=== PATIENT | male | born 1950 | race Caucasian/White ===

== ENCOUNTER 2016-08-27 09:32 | Emergency (ER) | payer MEDICARE ==
--- NOTE | 2016-08-27 10:09 | EDM.PDOC ---
ED HISTORY OF PRESENT ILLNESS - General Chief Complaint: Cardiovascular Problem Stated Complaint: LETHARGY/SOB Time Seen by Provider: 08/27/16 09:52 Source of Information: Reports: Patient, Provider (Dr. Mir), RN notes reviewed History Limitations: Reports: No limitations - History of Present Illness INITIAL COMMENTS - FREE TEXT/NARRATIVE: I was notified by Dr. Mir that the patient was over in laboratory getting an ABG, but that he was instructing the patient to come to the ED after his ABG. The patient is morbidly obese, unable to walk, residing at [facility] with a chronic indwelling Craig. We are told that he is supposed to wear your CPAP or BiPAP at the shelter, but that he refuses. The patient states that he has had shortness of breath at rest for about 6 months, and that his oxygen saturation has been recorded low for about that length of time, as well. He states that he has some mid back pain when he takes a deep breath, otherwise, he has not had any recent fever, chills, cough, anterior chest pain, palpitations, nausea, vomiting, constipation, or diarrhea. He states that he last saw Dr. Mir about 2 months ago for a general checkup. His dyspnea issue was not discussed. - Related Data Allergies/ADRs: Allergies Allergy/AdvReac Type Severity Reaction Status Date / Time No Known Allergies Allergy Verified 02/10/16 11:19 Home Meds: Home Meds Celecoxib [CeleBREX] 200 mg PO DAILY 01/14/14 [History] Insulin Aspart [Novolog Flexpen] 20 unit SQ 01/14/14 [History] Metoprolol Tartrate [Lopressor] 25 mg PO BID #60 tablet 01/18/14 [Rx] Calcium Polycarbophil [Fiber Laxative] 625 mg PO ,03/13/15 [History] Garlic 1,000 mg PO DAILY 03/13/15 [History] Insulin Detemir [Levemir Flexpen] 40 unit SQ BEDTIME 03/13/15 [History] Insulin Detemir [Levemir] 45 unit SQ ACBREAKFAST 03/13/15 [History] Losartan [Cozaar] 25 mg PO DAILY 03/13/15 [History] Potassium Gluconate 2 tab PO DAILY 03/13/15 [History] Tapentadol [Nucynta] 50 tab PO 0600,1800 03/13/15 [History] Warfarin [Coumadin] 10 mg PO ASDIRECTED 03/13/15 [History] atorvaSTATin [Lipitor] 40 mg PO BEDTIME 03/13/15 [History] Acetaminophen [Tylenol] 325 mg PO QID PRN 02/10/16 [History] Furosemide 120 mg PO 08,14 02/10/16 [History] Warfarin Sodium [Jantoven] 15 mg PO WE 02/10/16 [History] metroNIDAZOLE/Skin Cleansr #23 [Rosadan 0.75% Cream] 1 appful TOP ASDIRECTED PRN 02/10/16 [History] Cephalexin [Keflex] 500 mg PO 06,12,18 08/27/16 [History] Diltiazem [Cardizem CD] 180 mg PO ACBRK 08/27/16 [History] Insulin Aspart [NovoLOG] 34 unit SUBCUT 1130 08/27/16 [History] Ipratropium/Albuterol Sulfate [Iprat-Albut 0.5-3(2.5) mg/3 ml] 3 ml IH Q6H PRN 08/27/16 [History] Metolazone 10 mg PO ASDIRECTED 08/27/16 [History] Metolazone 10 mg PO TH 08/27/16 [History] Mupirocin Oint [Bactroban Oint] 1 dose TOP BID 08/27/16 [History] Polyethylene Glycol 3350 [MiraLAX] 17 gm PO DAILY 08/27/16 [History] Sertraline [Zoloft] 50 mg PO DAILY 08/27/16 [History] Past Medical History Cardiovascular History: Reports: Afib, CAD, Heart Failure, High cholesterol, Hypertension, DC Respiratory History: Reports: Sleep apnea (noncompliant with CPAP) Gastrointestinal History: Reports: GERD Musculoskeletal History: Reports: Arthritis, Back pain, chronic Psychiatric History: Reports: Depression Endocrine/Metabolic History: Reports: Diabetes, type II, Obesity/BMI 30+ - Infectious Disease History Infectious Disease History: Reports: MRSA Other Infectious Disease History: dcoumented on shelter paper work due from sores-wounds. isolations started - Past Surgical History Cardiovascular Surgical History: Reports: Coronary artery stent (x 2) Social & Family History - Tobacco Use Smoking Status *Q: Former Smoker Years of Tobacco use: 30 Packs/Tins Daily: 1.5 Used Tobacco, but Quit: Yes Month Tobacco Last Used: 1995 - Caffeine Use Caffeine Use: Reports: None - Alcohol Use Alcohol Use History: Yes Days Per Week of Alcohol Use: 1 Number of Drinks Per Day: 0 Total Drinks Per Week: 0 Date/Time of Last Drink Comment: 2013 Alcohol Use Frequency: Not Used in over 1 year - Recreational Drug Use Recreational Drug Use: Yes Drug Use in Last 12 Months: No Recreational Drug Use Frequency: Not Used In Over 1 Year Recreational Drug Last Use: "When I was younger" - Living Situation & Occupation Living situation: Reports: , extended care facility ([facility]) Occupation: disabled ED ROS GENERAL - Review of Systems Review Of Systems: See Below Constitutional: Reports: no symptoms HEENT: Reports: No symptoms Respiratory: Reports: Shortness of Breath. Denies: Wheezing, Cough Cardiovascular: Reports: No symptoms. Denies: Chest pain Endocrine: Reports: no symptoms GI/Abdominal: Reports: No symptoms : Reports: no symptoms Musculoskeletal: Reports: no symptoms Skin: Reports: no symptoms Neurological: Reports: No Symptoms Psychiatric: Reports: No symptoms Hematologic/Lymphatic: Reports: no symptoms Immunologic: Reports: no symptoms ED EXAM, GENERAL - Physical Exam Exam: See Below Exam Limited By: No limitations General Appearance: alert, WD/WN, no apparent distress, lethargic Eye Exam: bilateral eye: EOMI, normal inspection Ears: normal external exam, hearing grossly normal Ear Exam: bilateral ear: auricle normal Nose: normal inspection, no blood Throat/Mouth: Normal inspection, Normal lips, Normal voice, No airway compromise Head: atraumatic, normocephalic Neck: normal inspection, full range of motion Respiratory/Chest: no respiratory distress, lungs clear, normal breath sounds, no accessory muscle use Cardiovascular: normal peripheral pulses, no gallop, no JVD, no murmur, no rub, irregularly irregular. No: tachycardia Peripheral Pulses: 3+: radial (L), radial (R) GI/Abdominal: normal bowel sounds, soft, non tender, no abnormal bruit, other ( Obese) (Male) Exam: Deferred Rectal (Males) Exam: Deferred Extremities: normal capillary refill, other (Brawny edema) Neurological: alert, oriented, normal cognition, no motor/sensory deficits, slow to respond (lethargic/sleepy - repeatedly nods off) Psychiatric: normal affect Skin Exam: Warm, Dry, Intact, Normal color, No rash Lymphatic: no adenopathy EKG INTERPRETATION EKG Date: 08/27/16 Time: 10:31 Rhythm: a-fib Rate (beats/min): 74 Moroni: LAD-left axis deviation P-wave: absent QRS: normal ST-T: normal QT: normal Comparison: no change (02/10/2016) Course - Vital Signs Last Recorded V/S: Last Vital Signs Temp 36.3 C 08/27/16 09:44 Pulse 83 08/27/16 09:44 Resp 20 08/27/16 09:44 BP 195/144 H 08/27/16 09:44 Pulse Ox 86 L 08/27/16 09:44 - Orders/Labs/Meds Orders: Active Orders 24 hr Category Date Time Status BIPAP Adult [RT BiPAP/CPAP] [RC] ASDIRECTED Care 08/27/16 10:05 Active EKG Documentation Completion [RC] STAT Care 08/27/16 10:12 Active Labs: Laboratory Tests 08/27/16 08/27/16 08/27/16 Range/Units 10:35 10:35 10:35 WBC 5.01 (4.23-9.07) K/mm3 RBC 5.01 (4.63-6.08) M/mm3 Hgb 12.9 L (13.7-17.5) gm/L Hct 43.3 (40.1-51.0) % MCV 86.4 (79.0-92.2) fl MCH 25.7 (25.7-32.2) pg MCHC 29.8 L (32.2-35.5) g/dl RDW Std Deviation 73.6 H (35.1-43.9) fL Plt Count 295 (163-337) K/mm3 MPV 9.8 (9.4-12.3) fl Neutrophils % (Manual) 66 H (40-60) % Band Neutrophils % 1 (0-10) % Lymphocytes % (Manual) 23 (20-40) % Atypical Lymphs % 0 % Monocytes % (Manual) 7 (2-10) % Eosinophils % (Manual) 2 (0.8-7.0) % Basophils % (Manual) 1 (0.2-1.2) Platelet Estimate Adequate Hypochromasia 1+ slight Anisocytosis 1+ slight RBC Morph Comment Not Reportable Puncture Site ABG pH (7.35-7.45) ABG pCO2 (35.0-45.0) mmHg ABG pO2 (80.0-100.0) mmHg ABG HCO3 (22.0-26.0) meq/L ABG O2 Saturation (96.0-97.0) % ABG Base Excess (-2-2.0) Madi Test A-a Gradient mmHg O2 Delivery Device Oxygen Flow Rate FiO2 (21.00-100.00) % Sodium 136 (136-145) mEq/L Potassium 3.7 (3.5-5.1) mEq/L Chloride 94 L (98-107) mEq/L Carbon Dioxide 45 H* (21-32) mEq/L Anion Gap 0.7 L (5-15) BUN 21 H (7-18) mg/dL Creatinine 0.9 (0.7-1.3) mg/dL Est Cr Clr Drug Dosing 100.46 mL/min Estimated GFR (MDRD) > 60 (>60) mL/min BUN/Creatinine Ratio 23.3 H (14-18) Glucose 136 H (80-115) mg/dL POC Glucose (80-115) mg/dL Lactic Acid 2.3 H (0.4-2.0) mmol/L Calcium 8.8 (8.5-10.1) mg/dL Magnesium 2.3 (1.8-2.4) mg/dl Total Bilirubin 1.2 H (0.2-1.0) mg/dL AST 20 (15-37) U/L ALT 25 (16-63) U/L Alkaline Phosphatase 141 H (46-116) U/L Troponin I < 0.017 (0.00-0.056) ng/mL B-Natriuretic Peptide (0-100) pg/mL Total Protein 8.0 (6.4-8.2) g/dl Albumin 2.5 L (3.4-5.0) g/dl Globulin 5.5 gm/dL Albumin/Globulin Ratio 0.5 L (1-2) TSH 3rd Generation 5.084 H (0.358-3.74) uIU/mL 08/27/16 08/27/16 08/27/16 Range/Units 10:35 11:05 13:02 WBC (4.23-9.07) K/mm3 RBC (4.63-6.08) M/mm3 Hgb (13.7-17.5) gm/L Hct (40.1-51.0) % MCV (79.0-92.2) fl MCH (25.7-32.2) pg MCHC (32.2-35.5) g/dl RDW Std Deviation (35.1-43.9) fL Plt Count (163-337) K/mm3 MPV (9.4-12.3) fl Neutrophils % (Manual) (40-60) % Band Neutrophils % (0-10) % Lymphocytes % (Manual) (20-40) % Atypical Lymphs % % Monocytes % (Manual) (2-10) % Eosinophils % (Manual) (0.8-7.0) % Basophils % (Manual) (0.2-1.2) Platelet Estimate Hypochromasia Anisocytosis RBC Morph Comment Puncture Site Lt radial ABG pH 7.44 (7.35-7.45) ABG pCO2 68.5 H (35.0-45.0) mmHg ABG pO2 95.0 (80.0-100.0) mmHg ABG HCO3 45.4 H (22.0-26.0) meq/L ABG O2 Saturation 96.0 (96.0-97.0) % ABG Base Excess 17.6 H (-2-2.0) Madi Test Positive A-a Gradient 116 mmHg O2 Delivery Device Bipap 10/4 Oxygen Flow Rate 6.0 FiO2 44.00 (21.00-100.00) % Sodium (136-145) mEq/L Potassium (3.5-5.1) mEq/L Chloride (98-107) mEq/L Carbon Dioxide (21-32) mEq/L Anion Gap (5-15) BUN (7-18) mg/dL Creatinine (0.7-1.3) mg/dL Est Cr Clr Drug Dosing mL/min Estimated GFR (MDRD) (>60) mL/min BUN/Creatinine Ratio (14-18) Glucose (80-115) mg/dL POC Glucose 91 (80-115) mg/dL Lactic Acid (0.4-2.0) mmol/L Calcium (8.5-10.1) mg/dL Magnesium (1.8-2.4) mg/dl Total Bilirubin (0.2-1.0) mg/dL AST (15-37) U/L ALT (16-63) U/L Alkaline Phosphatase (46-116) U/L Troponin I (0.00-0.056) ng/mL B-Natriuretic Peptide 237 H (0-100) pg/mL Total Protein (6.4-8.2) g/dl Albumin (3.4-5.0) g/dl Globulin gm/dL Albumin/Globulin Ratio (1-2) TSH 3rd Generation (0.358-3.74) uIU/mL - Radiology Interpretation Free Text/Narrative:: Portable chest radiograph reviewed. There appears to be cardiomegaly. There may be mild pulmonary vascular congestion. No pleural effusions seen on this AP view. No focal infiltrate, however, there does appear to be platelike atelectasis of the right lower lobe. No pneumothorax. Formal read per the Radiologist pending. - Re-Assessments/Exams Free Text/Narrative Re-Assessment/Exam: 08/27/16 10:08 The ABG obtained from the laboratory a short while ago indicates chronic respiratory acidosis and hypoxemia. Both may be due to hypoventilation, therefore I will treat this as a hypoxemic respiratory failure, as opposed to a hypercarbic respiratory failure. The patient told the nurse, and emphatically stated to me that he does not want to be intubated, even if it means his . He is agreeable to trying BiPAP. I will start him off at a relatively low setting, and titrate as tolerated. 08/27/16 12:02 The patient's repeat ABG, obtained 30 minutes after he was placed on BiPAP, shows some improvement in his PCO2, and substantial improvement in his oxygenation. The remainder of his workup is unremarkable. Case discussed with Dr. Mir at 12:00 N. He would like me to return the patient to the shelter, and he will impress upon the patient the importance of wearing his BiPAP. 08/27/16 12:17 Dr. Mir called back. He has spoken to [facility], who informed him that because the patient did not wear his BiPAP, they may have returned it to the [facility]. They are going to look for it, then call us. If the BiPAP machine is not there, then the patient will have to remain at this hospital until the shelter can get a unit. 08/27/16 12:21 [facility] called - they did return the BiPAP machine. We will endeavor to make arrangements for a replacement. 08/27/16 13:40 [facility] has discovered the original orders for the patient's BiPAP - 02/17. We have contacted [employer]. The [employer]pat[employer] driver will pick a BiPAP machine up from [facility], then come to get the patient here, and take him and the BiPAP machine back to [facility]. Departure - Departure Time of Disposition: 13:43 Disposition: Home, Self-Care 01 Condition: fair Clinical Impression: Hypercapnia, Hypoxemia, Elevated TSH, Pickwickian syndrome Referrals: Murtaza Mir MD [Primary Care Provider] - Forms: ED Department Discharge Additional Instructions: You were seen in the emergency room after a blood gas showed your carbon dioxide level was high, and your oxygen level low. Workup in the ER included blood work, an ECG, and a chest x-ray. You were placed on BiPAP, and a repeat blood gas was checked 30 minutes later. 30 minutes after beginning BiPAP, your repeat blood gas showed improvement in your carbon dioxide, and significant improvement in your oxygenation. It does not appear that you have pneumonia or a COPD exacerbation. You are not in decompensated heart failure. Your TSH (thyroid stimulating hormone) level was found to be high, which indicates you may have hypothyroidism (low thyroid activity). This needs to be repeated. Your ECG showed that you are in atrial fibrillation. This appears to be a chronic condition for you. Your case was discussed with Dr. Mir. You do not need to be hospitalized, however, it is very important that you wear your BiPAP at the shelter, as prescribed. If any other problems, please do not hesitate to return to the ER. - My Orders Last 24 Hours: My Active Orders 08/27/16 10:05 BIPAP Adult [RT BiPAP/CPAP] [RC] ASDIRECTED 08/27/16 10:12 EKG Documentation Completion [RC] STAT - Assessment/Plan Last 24 Hours: My Active Orders 08/27/16 10:05 BIPAP Adult [RT BiPAP/CPAP] [RC] ASDIRECTED 08/27/16 10:12 EKG Documentation Completion [RC] STAT
--- NOTE | 2016-08-27 12:40 | CR ---
Chest: Frontal view of the chest was obtained. Comparison: Previous chest x-ray of 02/10/16. Pulmonary vessels are slightly congested. Atelectasis is noted within the right lung base. Heart is enlarged. Elevated right hemidiaphragm is seen which appears stable. Impression: 1. Findings suspicious for mild CHF. 2. Discoid atelectasis within the right lung base is seen. Diagnostic code #3
[2016-08-27 15:23] VITALS: BP 157/140
== END 2016-08-27 15:12 | disposition home or self-care (01) ==
LOC: JD.ED 09:32
DX: R09.02 Hypoxemia (principal); R06.89 Other abnormalities of breathing; R94.6 Abnormal results of thyroid function studies; E66.2 Morbid (severe) obesity with alveolar hypoventilation; I25.10 Atherosclerotic heart disease of native coronary artery without angina pectoris; I11.0 Hypertensive heart disease with heart failure; I50.9 Heart failure, unspecified; E78.00 Pure hypercholesterolemia, unspecified; K21.9 Gastro-esophageal reflux disease without esophagitis; M19.90 Unspecified osteoarthritis, unspecified site; F32.9 Major depressive disorder, single episode, unspecified; E11.9 Type 2 diabetes mellitus without complications; Z79.4 Long term (current) use of insulin; Z68.30 Body mass index [BMI] 30.0-30.9, adult; Z87.891 Personal history of nicotine dependence; Z79.01 Long term (current) use of anticoagulants; Z79.899 Other long term (current) drug therapy; I48.91 Unspecified atrial fibrillation
CPT/HCPCS: 36415; 36600; 71010; 71010-26; 80053; 82803; 82962; 83605; 83735; 83880; 84443; 84484; 85025; 93005; 94660; 99285; 99285-25

== ENCOUNTER 2017-05-13 11:17 | Emergency (ER) | payer MEDICARE ==
[2017-05-13 11:46] VITALS: BP 176/147
[2017-05-13] MEDS ORDERED: Sodium Chloride 0.9% 10 ML Syringe FLUSH PRN (11:50)
--- NOTE | 2017-05-13 12:26 | CR ---
Chest: Portable view of the chest is obtained. Comparison: Prior chest x-ray of 08/27/16. Heart is enlarged. Chronic increased pulmonary vessels are seen. Elevated right hemidiaphragm is seen. Bony structures are grossly intact. Impression: 1. Findings as noted above. No significant change is seen from previous study. Diagnostic code #3
--- NOTE | 2017-05-13 13:20 | EDM.PDOC ---
ED HPI GENERAL MEDICAL PROBLEM - General Chief Complaint: General Stated Complaint: LETHARGIC Time Seen by Provider: 05/13/17 11:32 Source of Information: Reports: Patient, Fdc Records, Old Records History Limitations: Reports: No Limitations - History of Present Illness INITIAL COMMENTS - FREE TEXT/NARRATIVE: 66 year old male presents from [facility] for weakness and lethargy. Patient is a resident of [facility]. Per fdc report he has been more lethargic and weak than normal. Patient reports he is dropping thing more than normal. no vomiting, diarrhea or cough. Reports he has been constipated. Last bowel movement, a large, was 2 days ago. [facility] also appreciated erythema to his lower abdomen and worsening swelling to his scrotum. Patient has a chronic indwelling suprapubic cathater. Patient denies pain to his scrotum and states it is numb. Reportedly the patient was on ciprofloxain for open MRSA + wounds to the bilateral legs, finished the antibiotic yesterday. Review of the patient's record shows he is supposed to be on bipap 02/17 at the fdc. He states he has been using this as prescribed. bilateral legs Pain Score (Numeric/FACES): 5 - Related Data Allergies Allergy/AdvReac Type Severity Reaction Status Date / Time No Known Allergies Allergy Verified 05/13/17 11:46 Home Meds: Home Meds Celecoxib [CeleBREX] 200 mg PO DAILY 01/14/14 [History] Insulin Aspart [Novolog Flexpen] 46 unit SQ 01/14/14 [History] Metoprolol Tartrate [Lopressor] 25 mg PO BID #60 tablet 01/18/14 [Rx] Calcium Polycarbophil [Fiber Laxative] 625 mg PO ,03/13/15 [History] Insulin Detemir [Levemir Flexpen] 40 unit SQ BEDTIME 03/13/15 [History] Insulin Detemir [Levemir] 45 unit SQ ACBREAKFAST 03/13/15 [History] Losartan [Cozaar] 25 mg PO DAILY 03/13/15 [History] Potassium Gluconate 2 tab PO DAILY 03/13/15 [History] Tapentadol [Nucynta] 50 tab PO 0600,1800 03/13/15 [History] Warfarin [Coumadin] 10 mg PO SUMOTUTHFRSA 03/13/15 [History] atorvaSTATin [Lipitor] 40 mg PO BEDTIME 03/13/15 [History] Acetaminophen [Tylenol] 325 mg PO QID PRN 02/10/16 [History] Furosemide 120 mg PO ,14 02/10/16 [History] Warfarin Sodium [Jantoven] 15 mg PO WE 02/10/16 [History] metroNIDAZOLE/Skin Cleansr #23 [[place] 0.75% Cream] 1 appful TOP ASDIRECTED PRN 02/10/16 [History] Diltiazem [Cardizem CD] 180 mg PO ACBRK 08/27/16 [History] Insulin Aspart [NovoLOG] 48 unit SUBCUT 1730 08/27/16 [History] Ipratropium/Albuterol Sulfate [Iprat-Albut 0.5-3(2.5) mg/3 ml] 3 ml IH Q6H PRN 08/27/16 [History] Metolazone 10 mg PO SUMOTUWEFRSA 08/27/16 [History] Metolazone 10 mg PO TH 08/27/16 [History] Mupirocin Oint [Bactroban Oint] 1 dose TOP BID 08/27/16 [History] Polyethylene Glycol 3350 [MiraLAX] 17 gm PO DAILY 08/27/16 [History] Sertraline [Zoloft] 50 mg PO DAILY 08/27/16 [History] Doxycycline [Vibramycin] 100 mg PO BID #20 cap 05/13/17 [Rx] Gabapentin [Neurontin] 300 mg PO BID 05/13/17 [History] Past Medical History HEENT History: Reports: Other (See Below) Other HEENT History: dental caries Cardiovascular History: Reports: Afib, CAD, Heart Failure, High Cholesterol, Hypertension, NC Other Cardiovascular History: edema, PPH Respiratory History: Reports: Sleep Apnea Other Respiratory History: oxygen dependent;URI Gastrointestinal History: Reports: GERD Genitourinary History: Reports: Retention, Urinary, Other (See Below) Other Genitourinary History: elephantitis of the scrotum ;recent suprapubic cath insertion. Musculoskeletal History: Reports: Arthritis, Back Pain, Chronic Other Musculoskeletal History: chronic hip pain, carpal tunnel syndrome Neurological History: Reports: Other (See Below) Other Neuro History: hereditary and idiopathic neuropathies Psychiatric History: Reports: Depression Endocrine/Metabolic History: Reports: Diabetes, Type II, Obesity/BMI 30+ Hematologic History: Reports: Anticoagulation Therapy Dermatologic History: Reports: Cellulitis, Chronic Cellulitis, Venous Stasis Dermatitis, Other (See Below) Other Dermatologic History: MRSA leg wounds, chronic stasis ulcers, chronic dermatitis of scrotum/genitals - Infectious Disease History Infectious Disease History: Reports: MRSA Other Infectious Disease History: dcoumented on fdc paper work due from sores-wounds. isolations started - Past Surgical History Cardiovascular Surgical History: Reports: Coronary Artery Stent Male Surgical History: Reports: Suprapubic Catheter Placement Musculoskeletal Surgical History: Reports: Carpal Tunnel Social & Family History - Family History Family Medical History: Noncontributory - Tobacco Use Smoking Status *Q: Former Smoker Years of Tobacco use: 30 Packs/Tins Daily: 1.5 Used Tobacco, but Quit: Yes Month Tobacco Last Used: 1995 Second Hand Smoke Exposure: Yes - Caffeine Use Caffeine Use: Reports: None - Alcohol Use Days Per Week of Alcohol Use: 1 Number of Drinks Per Day: 0 Total Drinks Per Week: 0 - Recreational Drug Use Recreational Drug Use: Yes Drug Use in Last 12 Months: No Recreational Drug Use Frequency: Not Used In Over 1 Year Recreational Drug Last Use: "When I was younger" - Living Situation & Occupation Living situation: Reports: , Extended Care Facility Occupation: Disabled ED ROS GENERAL - Review of Systems Review Of Systems: See Below Constitutional: Reports: Malaise, Weakness, Fatigue Cardiovascular: Denies: Chest Pain GI/Abdominal: Reports: Constipation. Denies: Diarrhea, Vomiting ED EXAM, GENERAL - Physical Exam Exam: See Below Exam Limited By: No Limitations General Appearance: Mild Distress, Obese Eye Exam: Bilateral Eye: Normal Inspection Ears: Normal External Exam Nose: Normal Inspection Throat/Mouth: Normal Inspection, Normal Voice, No Airway Compromise Respiratory/Chest: No Respiratory Distress, Lungs Clear, Normal Breath Sounds Cardiovascular: Normal Peripheral Pulses, Irregularly Irregular GI/Abdominal: Normal Bowel Sounds (Male) Exam: Other (suprapubic cathater presnts; swelling to the scrotum and penis) Neurological: Alert, Oriented, Normal Cognition Psychiatric: Normal Affect, Normal Mood Skin Exam: Warm, Dry, Erythema (lower abdomen ), Other (several open ulcerative wounds to the lower legs and toes) EKG INTERPRETATION EKG Date: 05/13/17 Time: 12:00 Rhythm: A-Fib Rate (Beats/Min): 89 [place]: Normal P-Wave: Present QRS: Normal ST-T: Normal QT: Prolonged EKG Interpretation Comments: a.fib at 89 bpm. prolonged QT interval. No acute changes. Reviewed by myself and Dr. De La Garza. Course - Vital Signs Last Recorded V/S: Last Vital Signs Temp 36.2 C 05/13/17 11:25 Pulse 80 05/13/17 11:25 Resp 18 05/13/17 11:25 BP 176/147 H 05/13/17 11:25 Pulse Ox 92 L 05/13/17 11:25 - Orders/Labs/Meds Orders: Active Orders 24 hr Category Date Time Status BIPAP Adult [RT BiPAP/CPAP] [RC] ASDIRECTED Care 05/13/17 12:23 Active Cardiac Monitoring [RC] . DIRECTED Care 05/13/17 11:49 Active EKG Documentation Completion [RC] ASDIRECTED Care 05/13/17 11:49 Active Peripheral IV Care [RC] . DIRECTED Care 05/13/17 11:50 Active CULTURE BLOOD [BC] Stat Lab 05/13/17 12:15 Received CULTURE BLOOD [BC] Stat Lab 05/13/17 12:25 Received Blood Culture x2 Reflex Set [OM.PC] Stat Oth 05/13/17 11:51 Ordered Peripheral IV Insertion Adult [OM.PC] Routine Oth 05/13/17 11:50 Ordered EKG 12 Lead [EK] Stat Ther 05/13/17 11:49 Ordered Labs: Laboratory Tests 05/13/17 05/13/17 05/13/17 Range/Units 12:15 12:15 12:15 WBC 7.74 (4.23-9.07) K/mm3 RBC 4.75 (4.63-6.08) M/mm3 Hgb 12.4 L (13.7-17.5) gm/L Hct 40.9 (40.1-51.0) % MCV 86.1 (79.0-92.2) fl MCH 26.1 (25.7-32.2) pg MCHC 30.3 L (32.2-35.5) g/dl RDW Std Deviation 62.9 H (35.1-43.9) fL Plt Count 266 (163-337) K/mm3 MPV 10.1 (9.4-12.3) fl Neutrophils % (Manual) 80 H (40-60) % Band Neutrophils % 3 (0-10) % Lymphocytes % (Manual) 7 L (20-40) % Atypical Lymphs % 0 % Monocytes % (Manual) 9 (2-10) % Eosinophils % (Manual) 0 L (0.8-7.0) % Basophils % (Manual) 1 (0.2-1.2) Toxic Granulation 1+ slight Platelet Estimate Adequate Plt Morphology Comment Normal Polychromasia 1+ slight Anisocytosis 2+ moderate Ovalocytes 1+ slight Stomatocytes 1+ slight RBC Morph Comment Not Reportable PT (8.0-13.0) SECONDS INR Puncture Site ABG pH (7.35-7.45) ABG pCO2 (35.0-45.0) mmHg ABG pO2 (80.0-100.0) mmHg ABG HCO3 (22.0-26.0) meq/L ABG O2 Saturation (96.0-97.0) % ABG Base Excess (-2-2.0) A-a Gradient mmHg O2 Delivery Device Oxygen Flow Rate FiO2 (21.00-100.00) % Sodium 139 (136-145) mEq/L Potassium 4.4 (3.5-5.1) mEq/L Chloride 95 L (98-107) mEq/L Carbon Dioxide 38 H (21-32) mEq/L Anion Gap 10.4 (5-15) BUN 85 H (7-18) mg/dL Creatinine 2.0 H (0.7-1.3) mg/dL Est Cr Clr Drug Dosing 38.02 mL/min Estimated GFR (MDRD) 34 (>60) mL/min BUN/Creatinine Ratio 42.5 H (14-18) Glucose 139 H (80-115) mg/dL Lactic Acid 1.2 (0.4-2.0) mmol/L Calcium 8.8 (8.5-10.1) mg/dL Magnesium 3.4 H (1.8-2.4) mg/dl Total Bilirubin 0.8 (0.2-1.0) mg/dL AST 23 (15-37) U/L ALT 19 (16-63) U/L Alkaline Phosphatase 96 (46-116) U/L Troponin I < 0.017 (0.00-0.056) ng/mL C-Reactive Protein 11.6 H* (<1.0) mg/dL NT-Pro-B Natriuret Pep (0-125) pg/mL Total Protein 7.8 (6.4-8.2) g/dl Albumin 2.7 L (3.4-5.0) g/dl Globulin 5.1 gm/dL Albumin/Globulin Ratio 0.5 L (1-2) 05/13/17 05/13/17 05/13/17 Range/Units 12:15 12:15 12:20 WBC (4.23-9.07) K/mm3 RBC (4.63-6.08) M/mm3 Hgb (13.7-17.5) gm/L Hct (40.1-51.0) % MCV (79.0-92.2) fl MCH (25.7-32.2) pg MCHC (32.2-35.5) g/dl RDW Std Deviation (35.1-43.9) fL Plt Count (163-337) K/mm3 MPV (9.4-12.3) fl Neutrophils % (Manual) (40-60) % Band Neutrophils % (0-10) % Lymphocytes % (Manual) (20-40) % Atypical Lymphs % % Monocytes % (Manual) (2-10) % Eosinophils % (Manual) (0.8-7.0) % Basophils % (Manual) (0.2-1.2) Toxic Granulation Platelet Estimate Plt Morphology Comment Polychromasia Anisocytosis Ovalocytes Stomatocytes RBC Morph Comment PT 48.5 H (8.0-13.0) SECONDS INR 4.07 Puncture Site Lt radial ABG pH 7.35 (7.35-7.45) ABG pCO2 71.7 H* (35.0-45.0) mmHg ABG pO2 70.0 L (80.0-100.0) mmHg ABG HCO3 38.7 H (22.0-26.0) meq/L ABG O2 Saturation 89.3 L (96.0-97.0) % ABG Base Excess 10.3 H (-2-2.0) A-a Gradient 46 mmHg O2 Delivery Device Nasal cannula Oxygen Flow Rate 3.0 FiO2 32.00 (21.00-100.00) % Sodium (136-145) mEq/L Potassium (3.5-5.1) mEq/L Chloride (98-107) mEq/L Carbon Dioxide (21-32) mEq/L Anion Gap (5-15) BUN (7-18) mg/dL Creatinine (0.7-1.3) mg/dL Est Cr Clr Drug Dosing mL/min Estimated GFR (MDRD) (>60) mL/min BUN/Creatinine Ratio (14-18) Glucose (80-115) mg/dL Lactic Acid (0.4-2.0) mmol/L Calcium (8.5-10.1) mg/dL Magnesium (1.8-2.4) mg/dl Total Bilirubin (0.2-1.0) mg/dL AST (15-37) U/L ALT (16-63) U/L Alkaline Phosphatase (46-116) U/L Troponin I (0.00-0.056) ng/mL C-Reactive Protein (<1.0) mg/dL NT-Pro-B Natriuret Pep 414 H (0-125) pg/mL Total Protein (6.4-8.2) g/dl Albumin (3.4-5.0) g/dl Globulin gm/dL Albumin/Globulin Ratio (1-2) Meds: Medications Discontinued Medications Generic Name Dose Route Start Last Admin Trade Name Freq PRN Reason Stop Dose Admin Sodium Chloride 1,000 mls @ 125 mls/hr 05/13/17 13:33 05/13/17 13:44 Normal Saline IV 05/13/17 21:32 125 mls/hr ONETIME ONE Administration Sodium Chloride 10 ml 05/13/17 11:50 05/13/17 12:59 Saline Flush FLUSH 10 ml ASDIRECTED PRN Administration Keep Vein Open - Radiology Interpretation Free Text/Narrative:: chest xray 1 view impression per : Heart is enlarged. chronic increased pulmonary vessels are seen. Elevated right hemidiaphragm is seen. Bony structures are grossly intact. - Re-Assessments/Exams Free Text/Narrative Re-Assessment/Exam: 05/13/17 14:35 influenza returned negative. I had case management run an [facility]. He meets for for observation. I discussed this with the patient. He does not want to come into the hospital and wants to go back to [place]. I spoke with the patient's PCP Dr. Mir. Recommended pushing fluids and starting doxycycline. He will see him next week. Will discharge home to the [facility]. Discharge instructions as documented. Departure - Departure Time of Disposition: 14:40 Disposition: [facility] Condition: Fair Clinical Impression: Hypermagnesemia, Morbid obesity, Hypercapnia, Hypoxemia, Acute kidney injury - Discharge Information Prescriptions: Doxycycline [Vibramycin] 100 mg PO BID #20 cap Instructions: Hypoxemia Referrals: Murtaza Mir MD [Primary Care Provider] - Forms: ED Department Discharge Additional Instructions: Doxycycline 1 tab twice a day for 10 days. Push fluids. See Dr. Mir next week. Continue with current care of leg wounds. Please return to the ER if your symptoms change or worsen. - My Orders Last 24 Hours: My Active Orders 05/13/17 11:49 Cardiac Monitoring [RC] . DIRECTED EKG Documentation Completion [RC] ASDIRECTED EKG 12 Lead [EK] Stat 05/13/17 11:50 Peripheral IV Care [RC] . DIRECTED Peripheral IV Insertion Adult [OM.PC] Routine 05/13/17 11:51 Blood Culture x2 Reflex Set [OM.PC] Stat 05/13/17 12:15 CULTURE BLOOD [BC] Stat 05/13/17 12:23 BIPAP Adult [RT BiPAP/CPAP] [RC] ASDIRECTED 05/13/17 12:25 CULTURE BLOOD [BC] Stat - Assessment/Plan Last 24 Hours: My Active Orders 05/13/17 11:49 Cardiac Monitoring [RC] . DIRECTED EKG Documentation Completion [RC] ASDIRECTED EKG 12 Lead [EK] Stat 05/13/17 11:50 Peripheral IV Care [RC] . DIRECTED Peripheral IV Insertion Adult [OM.PC] Routine 05/13/17 11:51 Blood Culture x2 Reflex Set [OM.PC] Stat 05/13/17 12:15 CULTURE BLOOD [BC] Stat 05/13/17 12:23 BIPAP Adult [RT BiPAP/CPAP] [RC] ASDIRECTED 05/13/17 12:25 CULTURE BLOOD [BC] Stat
[2017-05-13] MEDS ORDERED: Sodium Chloride 0.9% 1,000 ML IV ONE (13:33)
== END 2017-05-13 15:29 ==
LOC: JD.ED 11:17
DX: N17.9 Acute kidney failure, unspecified (principal); E83.41 Hypermagnesemia; E66.01 Morbid (severe) obesity due to excess calories; I10 Essential (primary) hypertension; E78.00 Pure hypercholesterolemia, unspecified; I25.2 Old myocardial infarction; I25.10 Atherosclerotic heart disease of native coronary artery without angina pectoris; I48.91 Unspecified atrial fibrillation; E11.9 Type 2 diabetes mellitus without complications; F32.9 Major depressive disorder, single episode, unspecified; A49.02 Methicillin resistant Staphylococcus aureus infection, unspecified site; L97.929 Non-pressure chronic ulcer of unspecified part of left lower leg with unspecified severity; L97.919 Non-pressure chronic ulcer of unspecified part of right lower leg with unspecified severity; Z79.4 Long term (current) use of insulin; Z79.01 Long term (current) use of anticoagulants; Z95.5 Presence of coronary angioplasty implant and graft; Z87.891 Personal history of nicotine dependence; N39.0 Urinary tract infection, site not specified
CPT/HCPCS: 36415; 36600; 71010; 80053; 81001; 82803; 83605; 83735; 83880; 84484; 85025; 85610; 86140; 87040; 87086; 87088; 87186; 87804; 93005; 94660; 96360; 99284; J7040; J7050; 93010